=== PATIENT | male | born 1960 | race Two or more races ===

== ENCOUNTER 2021-04-01 13:48 | Outpatient (CLI) | payer OTHER | END 2021-04-01 23:59 | disposition home or self-care (01) | LOC: LAB 13:48 | PROVIDERS: ATTEND Specialist | DX: Z01.812 Encounter for preprocedural laboratory examination (principal); Z20.822 Contact with and (suspected) exposure to COVID-19 | CPT/HCPCS: C9803; U0003 ==

== ENCOUNTER 2021-04-06 05:09 | Inpatient (IN) | payer OTHER ==
[2021-04-06] VITALS (14 sets, daily range): BP systolic 116–145; BP diastolic 68–96
[~2021-04-06] VITALS: Ht 167.6 cm; Wt 93.0 kg
[2021-04-06] MEDS ORDERED: ANESTHESIA TRAY IN PYXIS 1 EA TRAY MC ONE (05:47)
[2021-04-06] MEDS ORDERED: POLYMYXIN B SULFATE 500,000 UNITS ONE (05:47)
--- NOTE | 2021-04-06 05:53 | NUR ---
RN ADMITTING NOTE PATIENT BEING ADMITTED FOR DAY SX: RIGHT TOTAL KNEE ARTHROPLASTY. MRSA SWAB AND URINE COLLECTED FOR UA. PATIENT'S BS 111 MG/DL. LAC 20 G INSERTED, PATENT AND INTACT. PATIENT AMBULATES STEADILY. ON RA, TOLERATING WELL. VITAL SIGNS STABLE. BELONGINGS INVENTORIED, PATIENT'S WALLET PUT IN THE SAFE. SKIN IS INTACT. PATIENT HAS BEEN NPO SINCE 04/05 1800. SAFETY MEASURES IMPLEMENTED. WILL CONTINUE TO MONITOR PATIENT.
[2021-04-06] MEDS ORDERED: PROPOFOL 100 ML ONE (06:02)
[2021-04-06] MEDS ORDERED: BUPIVACAINE 0.25% 75 MG/30 ML VIAL ONE (06:03)
--- NOTE | 2021-04-06 06:16 | NUR ---
MS RN NOTE PT TAKEN TO OR. PT'S WALLET STORED IN SAFE.
[2021-04-06] MEDS ORDERED: TRANEXAMIC ACID 3,000 MG in SODIUM CHLORIDE IRRIG SOLUTION 70 ML IR ONE (07:00)
--- NOTE | 2021-04-06 07:20 | NUR ---
MS RN NOTES RECEIVED REPORT FROM VANCE PONCE EDGER RUNNER THAT PT IS IN THE SURGERY AT THIS TIME FOR RIGHT TOTAL KNEE ARTHROPLASTY BY EVY PAZ.
[2021-04-06] MEDS ORDERED: HYDROCODONE/APAP 10/325MG TABLET PO ONE (09:42)
[2021-04-06] MEDS ORDERED: diphenhydrAMINE HCL 25 MG CAPSULE PO PRN (10:00)
[2021-04-06] MEDS ORDERED: BISACODYL SUPP (10 MG) 10 MG/SUPP.RECT SUPP.RECT RC PRN (10:00)
[2021-04-06] MEDS ORDERED: CLONIDINE HCL 0.1 MG TABLET PO PRN (10:00)
[2021-04-06] MEDS ORDERED: HYDROCODONE/APAP 5/325MG TABLET PO PRN (10:00)
[2021-04-06] MEDS ORDERED: DOCUSATE SODIUM 250 MG CAPSULE PO PRN (10:00)
[2021-04-06] MEDS ORDERED: IV D5/0.45 NACL 1,000 ML IV PRN (10:00)
[2021-04-06] MEDS ORDERED: ZOLPIDEM TARTRATE 5 MG TABLET PO PRN (10:00)
[2021-04-06] MEDS ORDERED: MAG HYDROX/AL HYDROX/SIMETH 30 ML UDC PO PRN (10:00)
[2021-04-06] MEDS ORDERED: SENNOSIDES 8.6 MG TABLET PO PRN (10:00)
[2021-04-06] MEDS ORDERED: ONDANSETRON HCL/PF 4 MG/2 ML VIAL IVP PRN (10:00)
[2021-04-06] MEDS ORDERED: OXYC-133 PO (10:03)
[2021-04-06] MEDS ORDERED: OMEP20CA15 PO (10:03)
[2021-04-06] MEDS: PANTOPRAZOLE 40 MG TABLET.DR PO SCH ×2 (10:08→21:45)
--- NOTE | 2021-04-06 10:15 | NUR ---
RN NOTES PT RETURNED FROM SURGERY S/P RIGHT TOTAL KNEE ARTHROPLASTY BY DR SCHNEIDER ACCOMPANIED BY Sarah TEJADA RN. DRESSING ON RIGHT KNEE IN PLACE WRAPPED WITH DESIREE BANDAGE. PT IS A/O X4. ICELANDIC SPEAKING AND ABLE TO MAKE NEEDS KNOWN, C/O PAIN ON RIGHT KNEE, NORCO 10/325 MG PO GIVEN ORDERED. ON ROOM AIR, TOLERATING WELL WITH NO ACUTE RESPIRATORY DISTRESS NOTED. PT WITH IV ACCESS ON LAC G#18, WILL INFUSE IVF OF D5 1/2 NS AT 125ML/HR PER MD ORDER. INCENTIVE SPIROMETER GIVEN TO PT AND DEMONSTRATE HOW TO USE IT, PT VERBALIZED UNDERSTANDING AND ABLE TO DEMONSTRATE. SAFETY MEASURES MAINTAINED: BED IN LOWEST LOCKED POSITION WITH S/R UP X2. CALL LIGHT AND BEDSIDE TABLE W/I EASY REACH OF PT. WILL CONTINUE TO MONITOR PT ACCORDINGLY. Addendum: 04/06/21 at 1155 by JOSELIN ALEXANDER RN ADDENDUM: PT RETURNED TO UNIT AT 0955
[2021-04-06] MEDS ORDERED: BUSP10TA35 PO (10:23)
[2021-04-06] MEDS ORDERED: ONDA-97 PO (10:23)
[2021-04-06] MEDS ORDERED: BUPR100T6 PO (10:23)
[2021-04-06] MEDS ORDERED: CYCL5TAB PO (10:27)
[2021-04-06] MEDS: HYDROMORPHONE 1 MG/1 ML DISP.SYRIN IM/IV/SC PRN (13:56)
--- NOTE | 2021-04-06 14:20 | NUR ---
RN NOTES PATIENT COMPLAINS OF ABDOMINAL PAIN SEVERE PAIN 02/20. PRN DILAUDID GIVEN ORDERED. WILL CONTINUE TO MONITOR
[2021-04-06] MEDS: ANCEF 1 GM/50 ML D5W IV SCH ×2 (15:05→22:45)
[2021-04-06] MEDS: DOCUSATE SODIUM 100 MG CAPSULE PO SCH (16:36)
[2021-04-06] MEDS: HYDROCODONE/APAP 10/325MG TABLET PO PRN (18:55)
--- NOTE | 2021-04-06 18:55 | NUR ---
VANCE ESPINAL NOTES PT. AWAKE IS A/O X4. PORTUGUESE SPEAKING AND ABLE TO MAKE NEEDS KNOWN, C/O PAIN ON RIGHT KNEE, NORCO 10/325 MG PO GIVEN ORDERED. ON ROOM AIR, TOLERATING WELL WITH NO ACUTE RESPIRATORY DISTRESS NOTED. PT WITH IV ACCESS ON LAC G#18, WILL INFUSE IVF OF D5 1/2 NS AT 125ML/HR PER MD ORDER. PT. IS S/P RIGHT TOTAL KNEE ARTHROPLASTY, WITH DRESSING ON RIGHT KNEE IN PLACE WRAPPED WITH DESIREE BANDAGE. SAFETY MEASURES MAINTAINED: BED IN LOWEST LOCKED POSITION WITH S/R UP X2. CALL LIGHT AND BEDSIDE TABLE W/IN EASY REACH OF PT. WILL CONTINUE TO ENDORSED PATIENT TO CLIENT EXPERIENCE CONSULTANT NURSE FOR CONTINUITY OF CARE. Addendum: 04/06/21 at 1912 by JOSELIN ALEXANDER RN ABOVE PROGRESS NOTES IS MS WOODARD CLOSING NOTES
--- NOTE | 2021-04-06 18:57 | NUR ---
RN MS NOTES PATIENT C/O RIGHT KNEE PAIN 12/20, PRN NORCO 10 PO TAB. WAS GIVEN ORDERED. WILL CONTINUE TO MONITOR.
--- NOTE | 2021-04-06 19:40 | NUR ---
MS RN OPENING NOTES: RECEIVED PATIENT AWAKE IN BED, BED IN LOW POSITION, CALL LIGHTS WITHIN REACH, NO COMPLAIN OF PAIN AND DISCOMFORT AT THIS TIME, A/OX4 SENEGALESE SPEAKING, PATIENT IS S/P RIGHT KNEE ARTHROPLASTY CAN START TO AMBULATE ON BEDSIDE COMMODE WHEN NEEDED, ON FC WITH 50CC URINE OUTPUT, PATIENT KEPT CLEAN AND DRY REMIND TO USE THE CALL LIGHTS WHEN NEEDED ASSISTANCE, ALL NEEDS MET, WILL CONTINUE TO MONITOR.
[2021-04-06] MEDS: TAMSULOSIN 0.4 MG CAP.SR.24H PO SCH (21:45)
[2021-04-07] MEDS: HYDROCODONE/APAP 10/325MG TABLET PO PRN ×2 (00:05→08:18)
[2021-04-07 00:51] VITALS: BP 116/68
[2021-04-07 06:52] LABS: BASOPHILS % (AUTO) 0.2 % (0.0-2.0); EOSINOPHILS % (AUTO) 0.1 % (0.0-6.0); HEMATOCRIT 35 % (39-51); HEMOGLOBIN 12.4 g/dL (13.5-17.5); LYMPHOCYTES # (AUTO) 1.9 K/uL (0.8-4.8); LYMPHOCYTES % (AUTO) 20.2 % (20.0-44.0); MEAN CORPUSCULAR HGB CONC 36 g/dl (31.0-36.0); MEAN CORPUSCULAR VOLUME 94 fL (80-96); MONOCYTES # (AUTO) 0.8 K/uL (0.1-1.30); MONOCYTES % (AUTO) 8.9 % (2.0-12.0); NEUTROPHILS # (AUTO) 6.6 K/uL (1.8-8.9); NEUTROPHILS % (AUTO) 70.6 % (43.0-81.0); PLATELET COUNT (AUTO) 176 K/uL (150-450); WHITE BLOOD COUNT (AUTO) 9.3 K/uL (4.3-11.0)
--- NOTE | 2021-04-07 07:30 | NUR ---
MS RN CLOSING NOTES: RECEIVED PATIENT SLEEP IN BED AROUSABLE TO VERBAL STIMULI,BED IN LOW POSITION,CALL LIGHTS WITHIN REACH, NO COMPLAIN OF PAIN AND DISCOMFORT AT THIS TIME, PATIENT IS A/OX4 AMBULATORY TO BEDSIDE COMMODE USING WALKER WITH SUPERVISION, ON RA NO RESP DISTRESS WAS OBSERVED, PATIENT KEPT CLEAN AND DRY ALL NEEDS MET ENDORSE TO INCOMING SHIFT.
--- NOTE | 2021-04-07 07:32 | NUR ---
RN OPENING NOTES Patient seen comfortably lying in bed, no SOB, no apparent distress noted, breathing even and unlabored, denies any pain or discomfort at this time. Call light left within reach, safety precautions in place, brakes locked, side rails up X 2, will monitor closely for any changes.
[2021-04-07 08:00] VITALS: BP 143/90
[2021-04-07 08:03] LABS: ALBUMIN 3.3 g/dL (3.4-5.0); BILIRUBIN,TOTAL 0.7 mg/dL (0.2-1.0); CREATININE 0.8 mg/dL (0.6-1.3); PHOSPHORUS 2.8 mg/dL (2.5-4.9); TOTAL PROTEIN, SERUM 7.1 g/dL (6.4-8.2)
[2021-04-07 08:09] LABS: POTASSIUM 3.9 mmol/L (3.5-5.1)
[2021-04-07] MEDS: DOCUSATE SODIUM 100 MG CAPSULE PO SCH ×2 (08:16→17:16)
[2021-04-07] MEDS: RIVAROXABAN 10 MG TABLET PO SCH ×2 (08:18→17:16)
[2021-04-07] MEDS ORDERED: RIVAROXABAN 10 MG TABLET PO SCH (09:00)
[2021-04-07] MEDS: HYDROMORPHONE 1 MG/1 ML DISP.SYRIN IM/IV/SC PRN ×2 (11:44→19:47)
[2021-04-07] MEDS: oxyCODONE IR immediate release 5 MG PO PRN (14:32)
[2021-04-07 16:00] VITALS: BP 137/93
--- NOTE | 2021-04-07 18:22 | NUR ---
RN CLOSING NOTES Patient lying in bed, AO X 4, respirations even and unlabored, no SOB, remained afebrile during shift, no apparent distress noted, no dizziness, no palpitations noted at this time. All due medications given per MD order, tolerating well. Pain medications given per MD order when non pharmacological measures ineffective. Leiva catheter draining clear yellowish urine free from any sediments, no hematuria, and no unusual odor noted in urine, denies any bladder pain or discomfort, bladder non distended during shift. Patient S/P right total knee arthroplasty, surgical site covered with dry dressings, and wrapped in guille bandage, no s/s of circulation impairment noted at this time, skin warm to touch, no pallor or cyanosis noted, pulse present during shift, no swelling noted at this time. Patient has CPM machine at bedside, tolerating well, and was removed after patient ate his dinner. All needs attended, kept clean and dry, safety precautions in place, brakes locked, side rails up X 2, call light left within reach, will endorse to next shift for continuity of care.
--- NOTE | 2021-04-07 19:55 | NUR ---
MS RN OPENING NOTES: RECEIVED PATIENT SLEEP IN BED COMFORTABLY, BED IN LOW POSITION, CALL LIGHTS WITHIN REACH, NO COMPLAIN OF PAIN AND DISCOMFORT AT THIS TIME, WITH IV LINE AT LAC#20 SL, MAY AMBULATE TO BEDSIDE COMMODE WITH ASSISTANCE, PATIENT KEPT CLEAN AND DRY ALL NEEDS MET, WILL CONTINUE TO MONITOR.
[2021-04-07] MEDS: TAMSULOSIN 0.4 MG CAP.SR.24H PO SCH (21:45)
[2021-04-07] MEDS: PANTOPRAZOLE 40 MG TABLET.DR PO SCH (21:46)
[2021-04-07] MEDS: ACETAMINOPHEN 325 MG TABLET PO PRN (22:55)
--- NOTE | 2021-04-07 22:55 | NUR ---
RN NOTES: TYLENOL 650MG PO GIVEN FOR TEMP 100.3. ICE PACK PROVIDED.
[2021-04-07 23:43] VITALS: BP 149/91
[2021-04-08] MEDS: oxyCODONE IR immediate release 5 MG PO PRN ×3 (02:17→13:35)
--- NOTE | 2021-04-08 04:23 | NUR ---
RN NOTES: SPOKE TO DR ADRIANO ELLISON AND ORDERED TO D/C PALOMINO CATHETER AND REMOVED NOTED AND CARRY OUT.
[2021-04-08] MEDS ORDERED: BETHANECHOL CHLORIDE (25 MG) 25 MG TABLET PO ONE (05:00)
[2021-04-08] MEDS: MAGNESIUM HYDROXIDE 30 ML UDC PO PRN ×2 (06:18→14:53)
[2021-04-08 06:19] LABS: BASOPHILS % (AUTO) 0.3 % (0.0-2.0); EOSINOPHILS % (AUTO) 0.5 % (0.0-6.0); HEMATOCRIT 34 % (39-51); HEMOGLOBIN 11.7 g/dL (13.5-17.5); LYMPHOCYTES # (AUTO) 2.6 K/uL (0.8-4.8); LYMPHOCYTES % (AUTO) 24.5 % (20.0-44.0); MEAN CORPUSCULAR HGB CONC 35 g/dl (31.0-36.0); MEAN CORPUSCULAR VOLUME 96 fL (80-96); MONOCYTES % (AUTO) 9.7 % (2.0-12.0); PLATELET COUNT (AUTO) 163 K/uL (150-450); RED BLOOD CELL COUNT(AUTO) 3.52 MIL/uL (4.5-6.0); WHITE BLOOD COUNT (AUTO) 10.8 K/uL (4.3-11.0)
--- NOTE | 2021-04-08 06:44 | NUR ---
RN CLOSING NOTES:: RECEIVED PATIENT SLEEP IN BED COMFORTABLY, AROUSABLE TO VERBAL STIMULI, BED IN LOW POSITION, CALL LIGHTS WITHIN REACH, NO COMPLAIN OF PAIN AND DISCOMFORT, ON PAIN MANAGEMENT, PATIENT ,MAY AMBULATE TO BEDSIDE COMMODE, WBAT ON RIGHT KNEE, TOLERATED, PALOMINO CATHETER WITH 800CC URINE OUTPUT THEN D/C, PATIENT KEPT CLEAN AND DRY, ALL NEEDS MET ENDORSE TO INCOMING SHIFT.
[2021-04-08 06:56] LABS: CALCIUM, SERUM 8.2 mg/dL (8.5-10.1); CREATININE 0.8 mg/dL (0.6-1.3)
--- NOTE | 2021-04-08 07:35 | NUR ---
RN OPENING NOTES Patient seen comfortably lying in bed, no apparent distress noted, respirations even and unlabored, no SOB, denies any pain or discomfort at this time. Call light left within reach, safety precautions in place, brakes locked, side rails up X 2, will monitor closely for any changes.
[2021-04-08 08:00] VITALS: BP 135/75
[2021-04-08] MEDS: DOCUSATE SODIUM 100 MG CAPSULE PO SCH ×2 (08:53→17:00)
[2021-04-08] MEDS: HYDROMORPHONE 1 MG/1 ML DISP.SYRIN IM/IV/SC PRN ×2 (08:56→23:28)
[2021-04-08 16:00] VITALS: BP 158/89
--- NOTE | 2021-04-08 16:30 | NUR ---
Patient seen and examined by hospitalist today, and MD ordered for patient to discharge home today with home health, patient made aware of the situation and he said that he still feels weak and today during therapy, he felt weak and dizzy, per patient he feels like he's not ready to go home yet. Also spoke to daughter Casandra and she said if it is possible for his father to stay at the hospital, concerns acknowledged, MD, field case manager and charge nurse made aware of the situation. Around 5pm, patient was also noted to have heart rate of 113-116, BP 158/89, RR 18, T98, 02 at 96%, no palpitations, no dizziness, denies headache, also patient was noted to have poor appetite during dinner time, denies any abdominal pain or discomfort, no grimacing when abdomen palpated, no impaction, bowel sounds present in all quadrants. MD made aware of the situation and ordered 500ml of NS bolus X 1dose, then to be followed by NS 100ml/hr then do CBC, BMP in am, orders noted and carried out. Antonino (son) made aware of the situation, verbalized understanding and gratitude and he also said that he will tell her sister Casandra.
[2021-04-08] MEDS ORDERED: IV NS 0.9% 500 ML IV ONE (17:00)
[2021-04-08] MEDS: RIVAROXABAN 10 MG TABLET PO SCH (17:02)
--- NOTE | 2021-04-08 19:00 | NUR ---
RN CLOSING NOTES Patient lying in bed, AO X 4, respirations even and unlabored, no SOB, remained afebrile during shift, no apparent distress noted, no dizziness, no palpitations noted at this time. All due medications given per MD order, tolerating well. He is S/P right total knee arthroplasty, surgical site covered with dry dressings, and wrapped in guille bandage, no s/s of circulation impairment noted at this time, skin warm to touch, no pallor or cyanosis noted, pulse present during shift, no swelling noted at this time. Pain medications given per MD order when non pharmacological measures ineffective. Leiva catheter draining clear yellowish urine free from any sediments, no hematuria, and no unusual odor noted in urine, denies any bladder pain or discomfort, bladder non distended during shift. All needs attended, kept clean and dry, safety precautions in place, brakes locked, side rails up X 2, call light left within reach, will endorse to next shift for continuity of care.
[2021-04-08] MEDS: ACETAMINOPHEN 325 MG TABLET PO PRN (19:58)
[2021-04-08] MEDS: IV NS 0.9% 1,000 ML IV PRN (19:58)
[2021-04-08 20:00] VITALS: BP 125/83
--- NOTE | 2021-04-08 20:44 | NUR ---
Patient reports his pain is there but being managed with PRN medications. Started NS at 100cc/hr per Dr orders. Reminded pt. to call if he needs the PRN pain medication and when he would like to use the restroom. Still has not had BM PRN senna given. PRN Tylenol given d/t [id number], will reassess. HR also 114 still. Notified on-call -awaiting response.
[2021-04-08] MEDS: PANTOPRAZOLE 40 MG TABLET.DR PO SCH (21:24)
[2021-04-08] MEDS: TAMSULOSIN 0.4 MG CAP.SR.24H PO SCH (21:24)
--- NOTE | 2021-04-08 23:09 | NUR ---
temp went down to 99.7, patient says he feels warm turned on AC and gave another ice pack, states only minimal pain at this time.
--- NOTE | 2021-04-09 01:53 | NUR ---
temp now 99.1
--- NOTE | 2021-04-09 01:59 | NUR ---
patient's HR also down to 102, says he feels much better than earlier.
[2021-04-09] MEDS: IV NS 0.9% 1,000 ML IV PRN ×2 (05:40→17:39)
--- NOTE | 2021-04-09 06:05 | NUR ---
Patient still not able to have BM despite MOM and senna admin yesterday. Will endorse to follow-up with attending. Fever resolved with PRN tylenol and cooling measures. Patient reports he feels comfortable at this time no chills or feeling of fever/warmth. Currently awake A&Ox4 though slept well throughout the night.
[2021-04-09] MEDS: oxyCODONE IR immediate release 5 MG PO PRN ×3 (06:14→19:49)
--- NOTE | 2021-04-09 06:14 | NUR ---
Patient reports 12/20 PRN Oxy given as per order. Current temp 98.5
[2021-04-09 06:42] LABS: BASOPHILS % (AUTO) 0.2 % (0.0-2.0); EOSINOPHILS % (AUTO) 1.1 % (0.0-6.0); HEMATOCRIT 30 % (39-51); HEMOGLOBIN 10.7 g/dL (13.5-17.5); LYMPHOCYTES # (AUTO) 2.3 K/uL (0.8-4.8); MEAN CORPUSCULAR HGB CONC 36 g/dl (31.0-36.0); MEAN CORPUSCULAR VOLUME 96 fL (80-96); MONOCYTES % (AUTO) 10.1 % (2.0-12.0); NEUTROPHILS # (AUTO) 6.2 K/uL (1.8-8.9); NEUTROPHILS % (AUTO) 64.6 % (43.0-81.0); PLATELET COUNT (AUTO) 174 K/uL (150-450); RED BLOOD CELL COUNT(AUTO) 3.13 MIL/uL (4.5-6.0); WHITE BLOOD COUNT (AUTO) 9.5 K/uL (4.3-11.0)
[2021-04-09 07:03] LABS: CALCIUM, SERUM 7.7 mg/dL (8.5-10.1); CREATININE 0.8 mg/dL (0.6-1.3)
--- NOTE | 2021-04-09 07:30 | NUR ---
MS RN OPENING NOTES RECEIVED PATIENT SITTING ON CHAIR AT BEDSIDE, AWAKE AND A/O X4. ON ROOM AIR TOLERATING WELL. NO SOB NOTED. NOT IN DISTRESS. WITH NO COMPLAINTS OF PAIN AT THIS TIME. WITH IV ACCESS AT RIGHT AC G20 WITH NS AT 100ML/HR. SAFETY MEASURES IN PLACE. CALL LIGHT WITHIN REACH. BED ON LOWEST AND LOCKED POSITION, SIDE RAILS UP X2. WILL CONTINUE TO MONITOR.
[2021-04-09 08:00] VITALS: BP 141/76
[2021-04-09] MEDS: DOCUSATE SODIUM 100 MG CAPSULE PO SCH ×2 (08:26→16:41)
[2021-04-09] MEDS: HYDROMORPHONE 1 MG/1 ML DISP.SYRIN IM/IV/SC PRN (13:48)
[2021-04-09 16:00] VITALS: BP 143/77
[2021-04-09] MEDS: RIVAROXABAN 10 MG TABLET PO SCH (16:43)
--- NOTE | 2021-04-09 18:25 | NUR ---
MS RN CLOSING NOTES PATIENT RESTING ON BED AND A/O X4. ON ROOM AIR TOLERATING WELL. NO SOB NOTED. NOT IN DISTRESS. WITH NO COMPLAINTS OF PAIN AT THIS TIME. WITH IV ACCESS AT RIGHT AC G20 WITH NS AT 100ML/HR. SAFETY MEASURES IN PLACE. CALL LIGHT WITHIN REACH. BED ON LOWEST AND LOCKED POSITION, SIDE RAILS UP X2. WILL ENDORSE TO NEXT SHIFT FOR RICKY.
--- NOTE | 2021-04-09 19:40 | NUR ---
Patient still has not had BM. made aware okay for dulcolax supp x1. Patient stated he would try prune juice one more time and if it doesn't work would take the suppository.
[2021-04-09 20:00] VITALS: BP 130/73
[2021-04-09] MEDS ORDERED: BISACODYL SUPP (10 MG) 10 MG/SUPP.RECT SUPP.RECT RC ONE (20:00)
[2021-04-09] MEDS: TAMSULOSIN 0.4 MG CAP.SR.24H PO SCH (21:04)
[2021-04-09] MEDS: PANTOPRAZOLE 40 MG TABLET.DR PO SCH (21:04)
--- NOTE | 2021-04-09 21:18 | NUR ---
Patient able to have large BM after admin of dulcolax suppository says he feels much better is smiling and feels like he is finally ready to go home tomorrow.
--- NOTE | 2021-04-09 21:34 | NUR ---
Report given To Owen RN for [facility].
--- NOTE | 2021-04-09 21:34 | NUR ---
MS RN OPENING NOTE RECEIVED REPORT FROM VANCE SALVADOR @ [facility], RECEIVED PT IN BED, RESTING. A/O X4. PT IS STABLE ON 2L OXYGEN VIA NC, NO SOB OR RESPIRATORY DISTRESS NOTED, NO C/O PAIN. RESPIRATIONS EVEN AND UNLABORED, IV ACCESS NOTED RIGHT AC G#20, INTACT, PATENT AND FLUSHING WELL. SAFETY MEASURES IN PLACE AND MAINTAINED AT ALL TIMES. BED ALARM ON, BED IN LOW AND LOCKED POSITION, HOB ELEVATED TO SEMI FOWLERS POSITION, CALL LIGHT AND TABLE WITHIN REACH, SIDE RAILS UP X2. WILL CONTINUE TO MONITOR.
[2021-04-10] MEDS: HYDROMORPHONE 1 MG/1 ML DISP.SYRIN IM/IV/SC PRN ×2 (04:44→09:03)
--- NOTE | 2021-04-10 04:44 | NUR ---
PT C/O 02/20 PAIN, PER PT REQUEST DILAUDID 0.5MG/0.5ML IM Q2H PRN ADMINISTERED ATTHI STIME PER ORDER. WILL CONTINUE TO MONITOR.
--- NOTE | 2021-04-10 06:00 | NUR ---
MS RN CLOSING NOTE PT REMAINED STABLE THROUGHOUT SHIFT. WILL ENDORSE TO ONCOMING NURSE FOR RICKY.
[2021-04-10 06:43] LABS: BASOPHILS % (AUTO) 0.3 % (0.0-2.0); EOSINOPHILS % (AUTO) 2.4 % (0.0-6.0); HEMATOCRIT 28 % (39-51); HEMOGLOBIN 9.7 g/dL (13.5-17.5); LYMPHOCYTES # (AUTO) 1.9 K/uL (0.8-4.8); LYMPHOCYTES % (AUTO) 21.5 % (20.0-44.0); MEAN CORPUSCULAR HGB CONC 35 g/dl (31.0-36.0); MEAN CORPUSCULAR VOLUME 96 fL (80-96); MONOCYTES # (AUTO) 0.9 K/uL (0.1-1.30); MONOCYTES % (AUTO) 10.2 % (2.0-12.0); NEUTROPHILS # (AUTO) 5.8 K/uL (1.8-8.9); NEUTROPHILS % (AUTO) 65.6 % (43.0-81.0); PLATELET COUNT (AUTO) 197 K/uL (150-450); RED BLOOD CELL COUNT(AUTO) 2.89 MIL/uL (4.5-6.0); WHITE BLOOD COUNT (AUTO) 8.8 K/uL (4.3-11.0)
[2021-04-10 07:16] LABS: CALCIUM, SERUM 7.7 mg/dL (8.5-10.1); CREATININE 0.8 mg/dL (0.6-1.3); MAGNESIUM 2.2 mg/dL (1.8-2.4); PHOSPHORUS 2.7 mg/dL (2.5-4.9); POTASSIUM 4.2 mmol/L (3.5-5.1)
--- NOTE | 2021-04-10 07:53 | NUR ---
RN OPENING PT IN BED ASLEEP. ON RA WITH NO SOB OR RESPIRATORY DISTRESS PRESENT. SERBIAN/ISRAELI SPEAKING. PAIN MEDS GIVEN PER PROTOCOL. NO MIDDLE SCHOOL COACH. NO EDEMA PRESENT. SELF AMBULATORY WITH BATHROOM PRIVILEGES. BANDAGES PRESENT ON R KNEE FOR S/P R TOTAL KNEE ARTHROPLASTY. NO IV PRESENT. LABS AND ORDERS REVIEWED. SAFETY MEASURES IN PLACE. SIDE RAILS RAISED. BED LOWERED. CALL LIGHT WITHIN REACH. WILL CONTINUE TO MONITOR.
[2021-04-10] MEDS: DOCUSATE SODIUM 100 MG CAPSULE PO SCH (09:02)
--- NOTE | 2021-04-10 12:14 | NUR ---
RECYCLING CREW SUPERVISOR NOTE PT DISCHARGED HOME VIA PRIVATE CAR ACCOMPANIED BY FAMILY. EX[employer] EDUCATION UTILIZED AND GIVEN TO PT. BELONGINGS CHECKED AND GIVEN TO PT. PRESCRIPTIONS CHECKED AND GIVEN TO PT. SKIN INTACT. IV LINE REMOVED. ID BANDS REMOVED. PT TRANSPORTED OUT OF HOSPITAL VIA WHEELCHAIR WITH HEALTHCARE STAFF.
[2021-04-21] MEDS ORDERED: ASPIRIN 325 MG TABLET PO SCH (09:00)
== END 2021-04-10 13:10 | disposition home health service (06) | DRG 470 ==
LOC: DS 05:09 → MED 05:10
PROVIDERS: ATTEND Student in an Organized Health Care Education/Training Program
PROC: 0SRC0J9 Replacement of Right Knee Joint with Synthetic Substitute, Cemented, Open Approach (ICD-10-PCS; principal; 2021-04-06)
DX: M17.11 Unilateral primary osteoarthritis, right knee (principal); F32.A Depression, unspecified; E66.9 Obesity, unspecified; Z68.33 Body mass index [BMI] 33.0-33.9, adult; K21.9 Gastro-esophageal reflux disease without esophagitis
CPT/HCPCS: 36415; 71045-TC; 80048-TC; 80053-TC; 83735-TC; 84100-TC; 85025-TC; 86850-TC; 87040-TC; 87081-TC; 88305-TC; 88311-TC; 97112-TC; 97116-TC; 97530-TC; A4217; C1713; C1776; G0378; J0690; J1170; J2704; J3490; J7030; J7060; L1830